=== PATIENT | female | born 1950 | race Caucasian/White ===

== ENCOUNTER 2016-08-07 11:26 | Emergency (ER) | payer OTHER, MEDICARE ==
[2016-08-07 11:51] VITALS: BP 129/74; PULSE 73; RESP 20; O2SAT 92
[2016-08-07 12:21] VITALS: TEMP 97
--- NOTE | 2016-08-07 12:44 | UCPHY ---
H & P Time Seen by Provider: 08/07/16 12:00 Patient Type: New HPI/ROS: This patient was ice skating this morning and slipped on ice falling on its outstretched right arm with pain to the apex of the right humerus proximally since that time. The pain is mild to moderate at baseline becomes sharp and severe with attempts to move the right arm. She denies any other injuries. Incident occurred shortly prior to arrival. ROS: No head injury. No midline neck or back pain. No chest or belly pain. No focal numbness tingling weakness. 7 point ROS is otherwise negative. Smoking Status: Never smoked Physical Exam: Physical Exam Vital signs are normal. General: No acute distress HEENT: Atraumatic. Eyes: Pupils equal and react to light. Extraocular motions are intact. Lungs: No respiratory distress. Cardiac: Brisk capillary refill is intact throughout. Pulses are 2+ and symmetric in the affected extremity. Extremities: Atraumatic normal except for right shoulder that exam is notable for tenderness to the proximal humerus with associated swelling. She has limited range of motion due to this injury. No clavicle tenderness. Skin: No rash or pallor. Neuro: Alert and oriented x3 with no sensorimotor deficits. Initial differential diagnosis: Proximal humerus fracture versus acromion fracture versus rotator cuff injury Constitutional: Initial Vital Signs Temperature (C) 36.1 C 08/07/16 11:44 Heart Rate 73 08/07/16 11:44 Respiratory Rate 20 08/07/16 11:44 Blood Pressure 129/74 H 08/07/16 11:44 O2 Sat (%) 92 08/07/16 11:44 O2 Delivery Mode Room Air Allergies/Adverse Reactions: iodine Allergy (Verified 08/07/16 11:51) Home Medications: Medication Instructions Recorded Crestor 08/07/16 Flonase Nasal Petty 08/07/16 Lisinopril 08/07/16 Pantoprazole Sodium 08/07/16 Xarelto 08/07/16 oxyCODONE/APAP 5/325 [Percocet 1 - 2 tab PO Q4-6PRN PRN #15 tab 08/07/16 5/325 (*)] MDM/Departure - MDM Diagnostics: Shoulder x-ray: Nondisplaced greater tubercle fracture of the proximal humerus by my interpretation. ED Course/Re-evaluation: Patient is placed in a sling. I counseled regarding her shoulder fracture. She is treated with ibuprofen with partial relief. She is visiting here from [place] until Saturday. I recommend that she try to get in to see Dr. Anderson before Saturday or to follow up with orthopedic physician in home state early next week. Discussion: Nondisplaced greater tubercle fracture appears nonsurgical Plan for mobilization follow up with Orthopedics. - Depart Disposition: Home, Routine, Self-Care Clinical Impression: Greater tuberosity of humerus fracture Qualifiers: Encounter type: initial encounter Fracture type: closed Fracture alignment: nondisplaced Laterality: right Qualifier Code: (S42.254A) Nondisplaced fracture of greater tuberosity of right humerus, initial encounter for closed fracture Condition: Good Instructions: Proximal Humerus Fracture (ED) Additional Instructions: Diagnosis: Greater tuberosity fracture of humerus Plan: Sling whenever up and about Ice 20 minutes at a time 3 times a day or more Ibuprofen-600 mg per 6 hours as needed for pain Tylenol or Percocet in addition. No driving, alcohol or come Percocet Take a stool softener while on Percocet prevent constipation Call in orthopedic physician to arrange follow-up appointment for sometime in the next 3-7 days Prescriptions: oxyCODONE/APAP 5/325 [Percocet 5/325 (*)] 1 - 2 tab PO Q4-6PRN PRN #15 tab PRN Reason: Pain Referrals: OUT OF STATE,. [Primary Care Provider] - As per Instructions Nikita Anderson MD [Medical Doctor] - As per Instructions - PQRS PQRS Measurement: 134: Depression screening and followup, PRIME -PHQ2 (12 years and older) Over the last 2 weeks, how often have you been bothered by any of the following problems? 1. Feeling down, depressed, or hopeless? 2. Little interest or pleasure in doing things? [Patient answered no to both 1 and 2] [Patient answered yes to at least 1, referred to PCP for further evaluation.] [Not done because] [altered mental status] [patient refused] [critically ill]. 130: Documentation of medications. [Reviewed all patient medications, doses, route and frequency.] [Unable to obtain meds due to] [critical illness] [altered mental status] [ patient did not know]. 226: Do you smoke? [Yes, counseled to stop.] [No.] 47: 65 and older: Advanced care planning. Patient designates surrogate decision maker as [parent] [spouse] [ ]. [Patient refused.] [Patient has advanced directive.] 51: 18 years old and older with diagnosis of COPD, spirometry performance. [Spirometry not performed; equipment not available.] [Patient has no history of COPD] 52: 18 years old and older with COPD and symptoms of COPD or FEV1<60% predicted prescribed a B Agonist. [Spirometry not performed; equipment not available.]
--- NOTE | 2016-08-07 14:59 | DX ---
Right shoulder, 3 views Indication: Fall. Findings: There is a fracture of the greater tuberosity of the right humeral head. Glenohumeral and a cromioclavicular joints are intact. Adjacent soft tissue swelling is present. Impression: Right humeral greater tuberosity fracture with mild lateral displacement. Critical results relayed by Dr. Keon Rg to Dr. Will Howard on August 07, 2016, at 1454 erika rs.
== END 2016-08-07 13:14 | disposition home or self-care (01) ==
LOC: CED 11:26
DX: S42.254A Nondisplaced fracture of greater tuberosity of right humerus, initial encounter for closed fracture (principal); W00.0XXA Fall on same level due to ice and snow, initial encounter
CPT/HCPCS: 73030; G0463; 99203-PO